=== PATIENT | female | born 1950 | race Caucasian/White ===

== ENCOUNTER → 2016-04-29 16:57 | Outpatient (CLI) | payer MEDICARE, OTHER | END | disposition home or self-care (01) | LOC: D.MAMMO 09:45 | DX: Z12.31 Encounter for screening mammogram for malignant neoplasm of breast (principal) ==

== ENCOUNTER → 2017-09-23 20:38 | Outpatient (CLI) | payer MEDICARE, OTHER | END | disposition home or self-care (01) | LOC: D.MAMMO 14:45 | DX: Z12.31 Encounter for screening mammogram for malignant neoplasm of breast (principal) ==

== ENCOUNTER 2018-04-27 15:15 | Emergency (ER) | payer MEDICARE, OTHER ==
[~2018-04-27] VITALS: Ht 165.1 cm; Wt 79.1 kg
[2018-04-27 15:28] VITALS: BP 137/78; Ht 165.1 cm; Wt 79.1 kg
[2018-04-27] MEDS ORDERED: BAYER CHEWABLE81 MG (15:29)
[2018-04-27] MEDS ORDERED: ZYRTEC10 MG (15:29)
[2018-04-27] MEDS ORDERED: GLUCOPHAGE1000 MG (15:29)
[2018-04-27] MEDS ORDERED: COZAAR50 MG (15:29)
[2018-04-27] MEDS ORDERED: TENORMIN100 MG (15:30)
[2018-04-27] MEDS ORDERED: SYNTHROID50 MCG (15:30)
[2018-04-27] MEDS ORDERED: OMEPRAZOLE20 M1 (15:30)
[2018-04-27] MEDS ORDERED: TRULICITY0.75 MG/0. (15:30)
[2018-04-27] MEDS ORDERED: NORVASC10 MG (15:30)
[2018-04-27] MEDS ORDERED: PRAVACHOL80 MG (15:30)
[2018-04-27 16:05] LABS: BASOPHILS 1.2 % (0-2); EOSINOPHILS 1.1 % (0-7); HEMATOCRIT 43.4 % (36.0-48.0); HEMOGLOBIN 14.4 g/dL (12-16); IMMATURE GRANULOCYTES 0.5 % (0-5); LYMPHOCYTES 33.8 % (15-50); MCHC 33.2 g/dL (31.0-37.0); MCV 87.3 fL (80.0-100.0); MEAN PLATELET VOLUME 10.6 fL (7.4-10.4); MONOCYTES 10.8 % (2-11); NEUTROPHILS 52.6 % (40-80); PLATELET COUNT 275 10x3/uL (130-400); RBC 4.97 10x6/uL (4.00-5.40); RDW 14.2 % (11.5-14.5); WBC 10.4 10x3/uL (4.8-10.8)
[2018-04-27 16:29] LABS: ALBUMIN 3.9 g/dL (3.4-5.0); ALKALINE PHOSPHATASE 124 U/L (46-116); ALT (SGPT) 56 U/L (10-68); BILIRUBIN - TOTAL 0.48 mg/dL (0.2-1.3); CALC OSMOLALITY 284 mosm/kg (275-300); CALCIUM 9.3 mg/dL (8.5-10.1); CARBON DIOXIDE 25.5 mmol/L (21.0-32.0); CHLORIDE - SERUM 100 mmol/L (98-107); CREATININE - SERUM 0.8 mg/dL (0.6-1.3); GLUCOSE 211 mg/dL (74-106); POTASSIUM - SERUM 3.9 mmol/L (3.5-5.1); PROTEIN - SERUM 7.7 g/dL (6.4-8.2); SODIUM 139 mmol/L (136-145); UREA NITROGEN 15 mg/dL (7-18); eGFR NON AFRICAN AMERICAN 76 mL/min (90-120)
[2018-04-27 16:43] LABS: CKMB 0.8 U/L (0.0-3.6); CREATINE KINASE 51 UL (21-215); PRO BNP 29 pg/mL (0-125); TROPONIN-I < 0.017 ng/mL (0.000-0.060)
== END 2018-04-27 17:30 | disposition home or self-care (01) ==
LOC: D.ER 15:15
PROVIDERS: Emergency Medicine
DX: R55 Syncope and collapse (principal)

== ENCOUNTER 2019-01-01 09:00 | Outpatient (CLI) | payer MEDICARE, OTHER ==
[2018-04-27 15:28] VITALS: BMI 29.0
[~2019-01-01 09:00] MED LIST: BAYER CHEWABLE81 MG; COZAAR50 MG; GLUCOPHAGE1000 MG; NORVASC10 MG; OMEPRAZOLE20 M1; PRAVACHOL80 MG; SYNTHROID50 MCG; TENORMIN100 MG; TRULICITY0.75 MG/0.; ZYRTEC10 MG
== END 2019-01-01 10:00 | disposition home or self-care (01) ==
LOC: D.MAMMO 09:00
PROVIDERS: ATTEND Family Medicine
DX: Z12.31 Encounter for screening mammogram for malignant neoplasm of breast (principal)

== ENCOUNTER 2019-02-08 16:30 | Outpatient (CLI) | payer MEDICARE, OTHER ==
[2018-04-27 15:28] VITALS: BMI 29.0
== END 2019-02-08 17:00 | disposition home or self-care (01) ==
LOC: D.MAMMO 16:30
PROVIDERS: ATTEND Family Medicine
DX: R92.8 Other abnormal and inconclusive findings on diagnostic imaging of breast (principal)